=== PATIENT | female | born 1970 | race Caucasian/White ===

== ENCOUNTER 2020-02-09 03:06 | Emergency (ER) | payer OTHER ==
[~2020-02-09] VITALS: Ht 157.5 cm; Wt 58.3 kg
[2020-02-09 03:12] VITALS: BP 147/87
[2020-02-09 03:54] LABS: MICROSCOPIC INDICATED
--- NOTE | 2020-02-09 04:42 | NUR ---
PT IN NAD, ERP AT BEDSIDE.
--- NOTE | 2020-02-09 04:50 | NUR ---
pelvic set up room 4.
--- NOTE | 2020-02-09 05:20 | NUR ---
PELVIC DONE BY RIGOBERTO, CHAPERONED BY THIS NURSE. WET PREP/GC/CHLYM WALKED TO LAB.
--- NOTE | 2020-02-09 06:38 | NUR ---
LAB CALLED, WET PREP WAS TOO DILUTE. THEY ATTEMPTED TO TEST BUT STATE WAS UNABLE TO. RIGOBERTO INFORMED.
--- NOTE | 2020-02-09 06:53 | NUR ---
REPORT TO NICOLE BUCK
--- NOTE | 2020-02-09 06:57 | NUR ---
[facility] HAND-OFF REPORT RECEIVED FROM CIELO GAUTHIER. ASSUMING CARE OF PATIENT.
--- NOTE | 2020-02-09 07:22 | NUR ---
Patient given discharge instructions and they have confirmed that they understand the instructions. Patient ambulatory with steady gait.
== END 2020-02-09 07:23 | disposition home or self-care (01) ==
LOC: ED 06:08
DX: N76.0 Acute vaginitis (principal)
CPT/HCPCS: 81001; 87077; 87086; 87186; 87491; 87591; 99283; 99284